=== PATIENT | female | born 1985 | race Caucasian/White ===

== ENCOUNTER → 2018-06-02 | Outpatient (CLI) | payer OTHER ==
[~2018-06-02] MED LIST: Amoxicillin500 MG PO; CIME400 PO; DIPH25 PO; Flonase 0.05% N16 GM; MULVITMIND PO; PRED10 PO; PRED20 PO; PSEU120ER PO; TRIA80TC TOP; Ultram50 MG PO; Veetids 500500 MG PO; [UNRECOGNIZED DRUG - OTHER] PO
[2018-06-02 11:44] LABS: BASOPHILS ABSOLUTE AUTO 0.03 K/mm3 (0.00-0.23); BASOPHILS PERCENT AUTO 0 % (0-2); EOSINOPHILS ABSOLUTE AUTO 0.15 K/mm3 (0.00-0.68); EOSINOPHILS PERCENT AUTO 2 % (0-6); Hematocrit 42.8 % (33.0-51.0); Hemoglobin 14.7 g/dL (11.5-16.0); IMMATURE GRAN ABSOLUTE AUTO 0.02 K/mm3 (0.00-0.10); IMMATURE GRAN PERCENT AUTO 0 % (0-1); LYMPHOCYTES ABSOLUTE AUTO 2.61 K/mm3 (0.84-5.20); LYMPHOCYTES PERCENT AUTO 31 % (21-46); MONOCYTES PERCENT AUTO 5 % (4-13); Mean Corpuscular HGB 29.2 pg (26.0-34.0); Mean Corpuscular HGB Conc 34.3 g/dL (31.5-36.5); Mean Corpuscular Volume 85 fL (80-100); Mean Platelet Volume 9.7 fL (9.1-12.4); NEUTROPHILS ABSOLUTE AUTO 5.12 K/mm3 (1.96-9.15); NEUTROPHILS PERCENT AUTO 62 % (41-73); Platelet Count 251 K/mm3 (150-400); RDW Standard Deviation 37.1 fL (35.1-46.3); Red Blood Cell Count 5.03 M/mm3 (3.80-5.20); White Blood Cell Count 8.33 K/mm3 (4.00-11.30)
== END | disposition home or self-care (01) ==
LOC: LAB SHORT 11:37 → LAB EV 11:37
PROVIDERS: Physician Assistant
DX: R53.83 Other fatigue (principal); E66.9 Obesity, unspecified
CPT/HCPCS: 83036; 84443; 85025

== ENCOUNTER 2018-07-07 09:48 | Emergency (ER) | payer OTHER ==
[~2018-07-07] VITALS: Ht 162.6 cm; Wt 104.3 kg
[2018-07-07] MEDS ORDERED: Norco 10-325 T1 EACH PO (13:28)
[2018-07-07] MEDS ORDERED: Naprosyn500 MG PO (13:28)
== END 2018-07-07 14:29 | disposition home or self-care (01) ==
LOC: ER 09:48
DX: S16.1XXA Strain of muscle, fascia and tendon at neck level, initial encounter (principal); S29.012A Strain of muscle and tendon of back wall of thorax, initial encounter; S39.012A Strain of muscle, fascia and tendon of lower back, initial encounter; V89.2XXA Person injured in unspecified motor-vehicle accident, traffic, initial encounter
CPT/HCPCS: 72070; 72100; 72125; 99284-25

== ENCOUNTER 2019-03-10 08:59 | Day surgery (SDC) | payer OTHER ==
[~2019-03-10] VITALS: Ht 165.1 cm; Wt 106.4 kg
[~2019-03-10 08:59] MED LIST changes: +Naprosyn500 MG PO; +Norco 10-325 T1 EACH PO
--- NOTE | 2019-03-10 10:31 | NUR ---
03/10/19 1031 Carmela Knight 2 IV ATTEMPTS BY [facility], 1ST IN R FOREARM DID NOT GO IN THE VEIN, 2ND IN R AC WAS SUCCESSFUL
--- NOTE | 2019-03-10 12:19 | NUR ---
03/10/19 1219 Sendy Osborne PATIENT C.O PAIN IN RIGHT WRIST, STATES NEEDS NAUSEA MED AT THE SAME TIME, GIVEN ZOFRAN AND SUBLIMAZE
== END 2019-03-10 12:40 | disposition home or self-care (01) ==
LOC: ORSCSDS 08:59
PROVIDERS: Orthopaedic Surgery
PROC: 0LB60ZZ Excision of Left Lower Arm and Wrist Tendon, Open Approach (ICD-10-PCS; principal; 2019-03-10 10:45)
DX: M67.432 Ganglion, left wrist (principal); E66.01 Morbid (severe) obesity due to excess calories; Z68.39 Body mass index [BMI] 39.0-39.9, adult
CPT/HCPCS: 88304; J0690; J2250; J2405; J2704; J3010; J7120

== ENCOUNTER → 2021-12-18 | Outpatient (CLI) | payer OTHER ==
[2021-12-22 14:09] LABS: QUANTIFERON MITOGEN VALUE >10.00 IU/mL (.); QUANTIFERON NIL VALUE 0.06 IU/mL (.); QUANTIFERON TB1 AG VALUE 0.09 IU/mL (.); QUANTIFERON TB2 AG VALUE 0.06 IU/mL (.); QUANTIFERON-TB GOLD PLUS Negative (Negative)
== END | disposition home or self-care (01) ==
LOC: LAB 16:07 → LAB SHORT 16:07
PROVIDERS: Family Medicine
DX: Z00.00 Encounter for general adult medical examination without abnormal findings (principal)
CPT/HCPCS: 86480

== ENCOUNTER → 2023-04-23 | Outpatient (CLI) | payer OTHER ==
[2023-04-26 00:59] LABS: QUANTIFERON MITOGEN MINUS NIL >10.00 IU/mL; QUANTIFERON NIL 0.03 IU/mL; QUANTIFERON TB GOLD PLUS Negative (Negative)
== END ==
LOC: LAB SHORT 15:52 → LAB 15:52
PROVIDERS: Family Medicine
DX: Z20.1 Contact with and (suspected) exposure to tuberculosis (principal)
CPT/HCPCS: 86480

== ENCOUNTER → 2025-02-23 | Outpatient (CLI) | payer BC ==
[2025-02-23 21:23] LABS: Creatinine, Urine Random 102.0 mg/dL (27.00-270.00); Microalb/Creat Ratio UR, Rand 6.892 mg/g (0.000-30.000); Microalbumin, Random Urine 7.03 mg/L (0.000-20.000)
== END | disposition home or self-care (01) ==
LOC: LAB 20:42 → LAB SHORT 20:42
PROVIDERS: Physician Assistant
DX: E11.69 Type 2 diabetes mellitus with other specified complication (principal)
CPT/HCPCS: 82043; 82570